=== PATIENT | female | born 1980 | race Caucasian/White ===

== ENCOUNTER 2021-04-20 10:02 | Inpatient (IN) | payer OTHER ==
[2021-04-20] MEDS ORDERED: OXYTOCIN 30 UNITS in 0.9% NS 30 UNIT/500 ML INFUS.BAG IVPB SCH (10:15)
[2021-04-20 11:02] VITALS: BMI 32.3
[2021-04-20] MEDS: ELECTROLYTE-148 SOLN 1,000 ML IV SCH ×2 (11:25→19:30)
[2021-04-20] MEDS ORDERED: OXYTOCIN 30 UNITS in 0.9% NS 30 UNIT/500 ML INFUS.BAG IVPB ONE (11:37)
[2021-04-20 11:50] LABS: BASO % 0.4 % (0-2.0); EOS % 0.4 % (0-4.5); HEMATOCRIT 33.3 % (32.4-45.2); HEMOGLOBIN 11.2 GM/dL (10.7-15.3); LYMPH % 17.1 % (8-40); MCH 26.8 pg (25.7-33.7); MCHC 33.5 g/dl (32.0-36.0); MEAN CELL VOLUME 80.2 fl (80-96); MEAN PLT VOLUME 9.6 fl (7.5-11.1); MONO % 8.1 % (3.8-10.2); PLATELET COUNT 245 10^3/uL (134-434); RBC 4.15 M/mm3 (3.60-5.2); RDW 13.8 % (11.6-15.6); WHITE BLOOD COUNT 8.8 K/mm3 (4.0-10.0)
[2021-04-20 11:56] LABS: INR 0.96 (0.83-1.09); PROTHROMBIN TIME (PATIENT) 11.8 SEC (9.7-13.0)
[2021-04-20 12:04] LABS: ACTIVATED PTT 22.6 SECONDS (25.2-36.5)
[2021-04-20] MEDS ORDERED: FENTANYL/BUPIVACAINE/NS/PF - PCEA - 50 ML DISP.SYRIN EP ONE ×2 (19:17→23:55)
[2021-04-20] MEDS ORDERED: PCA PUMP NR ONE (19:18)
[2021-04-20] MEDS ORDERED: NALOXONE HCL 0.4 MG/ML VIAL IVPUSH PRN (19:20)
[2021-04-20] MEDS ORDERED: BUPIVACAINE HCL/PF 0.25% (2.5MG/ML) 10 ML VIAL ONE (19:23)
[2021-04-20] MEDS: FENTANYL/BUPIVACAINE/NS/PF - PCEA - 50 ML DISP.SYRIN EP SCH (19:55)
[2021-04-20] MEDS ORDERED: LIDOCAINE HCL 1% PRESERVATIVE FREE - 30ML VIAL ONE (22:25)
[2021-04-20] MEDS ORDERED: OXYTOCIN 20 UNITS in 0.9% NS 20 UNIT/1,000 ML INFUS.BAG IV ONE (22:26)
[2021-04-21] MEDS: FENTANYL/BUPIVACAINE/NS/PF - PCEA - 50 ML DISP.SYRIN EP SCH ×2 (00:20→04:00)
[2021-04-21] MEDS: ELECTROLYTE-148 SOLN 1,000 ML IV SCH (04:00)
[2021-04-21] MEDS ORDERED: PCA PUMP NR ONE ×2 (04:02→07:39)
[2021-04-21] MEDS ORDERED: FENTANYL/BUPIVACAINE/NS/PF - PCEA - 50 ML DISP.SYRIN EP ONE ×2 (04:02→07:40)
[2021-04-21] MEDS ORDERED: CITRIC ACID/SODIUM CITRATE 30 ML UNIT-DOSE CUP PO ONE (07:47)
[2021-04-21] MEDS ORDERED: ONDANSETRON 4 MG/2 ML VIAL IVPUSH PRN ×2 (08:11→09:33)
[2021-04-21] MEDS ORDERED: morphine SULFATE/PF 0.5 MG/ML (2cc Syringe - QUVA) EP ONE ×2 (08:11→09:33)
[2021-04-21] MEDS ORDERED: ceFAZolin SODIUM 1 GM VIAL ONE (08:16)
[2021-04-21] MEDS ORDERED: LIDOCAINE HCL/EPINEPHRINE/PF 10 ML VIAL ONE (08:19)
[2021-04-21] MEDS ORDERED: PHENYLEPHRINE HCL 10 MG/1 ML SINGLE DOSE VIAL ONE (08:34)
[2021-04-21] MEDS ORDERED: OXYTOCIN 10 UNITS/ML VIAL ONE (08:40)
[2021-04-21] MEDS ORDERED: ONDANSETRON 4 MG/2 ML VIAL ONE (08:45)
[2021-04-21] MEDS ORDERED: oxyCODONE HCL 5 MG TABLET PO PRN (09:06)
[2021-04-21] MEDS ORDERED: BENZOCAINE 28 GM HEMORRHOIDAL OINTMENT TP PRN (09:06)
[2021-04-21] MEDS ORDERED: METHYLERGONOVINE MALEATE 0.2 MG/1 ML AMP IM PRN (09:06)
[2021-04-21] MEDS ORDERED: WITCH HAZEL 50% (TUCKS) 40 PAD/JAR PAD TP PRN (09:06)
[2021-04-21] MEDS ORDERED: BENZOCAINE 20% 57 GM BOTTLE TP PRN (09:06)
[2021-04-21] MEDS ORDERED: OXYTOCIN 20 UNITS in 0.9% NS 20 UNIT/1,000 ML INFUS.BAG IV SCH (09:15)
[2021-04-21] MEDS ORDERED: IBUPROFEN 800 MG/8 ML IJ IVPB ONE (09:45)
[2021-04-21] MEDS: IBUPROFEN 800 MG/8 ML IJ IVPB PRN ×2 (09:51→23:44)
[2021-04-21] MEDS: PRENATAL VITAMINS W/ FOLIC ACID TABLET (FP) PO SCH (12:53)
[2021-04-21] MEDS: FERROUS SO4 325 MG TABLET (FP) PO SCH ×2 (12:53→18:10)
[2021-04-22 07:46] LABS: BASO % 0.3 % (0-2.0); EOS % 0.5 % (0-4.5); HEMATOCRIT 28.3 % (32.4-45.2); HEMOGLOBIN 9.5 GM/dL (10.7-15.3); LYMPH % 11.8 % (8-40); MCH 26.9 pg (25.7-33.7); MCHC 33.4 g/dl (32.0-36.0); MEAN CELL VOLUME 80.5 fl (80-96); MEAN PLT VOLUME 9.4 fl (7.5-11.1); MONO % 7.7 % (3.8-10.2); NEUT % 79.7 % (42.8-82.8); PLATELET COUNT 192 10^3/uL (134-434); RBC 3.52 M/mm3 (3.60-5.2); WHITE BLOOD COUNT 12.1 K/mm3 (4.0-10.0)
[2021-04-22] MEDS ORDERED: BISACODYL 10 MG SUPP.RECT RC PRN (09:07)
[2021-04-22] MEDS: SIMETHICONE 80 MG TAB.CHEW (FP) PO PRN ×3 (09:50→20:57)
[2021-04-22] MEDS: FERROUS SO4 325 MG TABLET (FP) PO SCH ×2 (09:50→16:33)
[2021-04-22] MEDS: IBUPROFEN 600 MG TABLET (FP) PO PRN ×3 (09:50→20:58)
[2021-04-22] MEDS: ACETAMINOPHEN 325 MG TABLET (FP) PO PRN ×3 (09:50→20:57)
[2021-04-22] MEDS: PRENATAL VITAMINS W/ FOLIC ACID TABLET (FP) PO SCH (09:50)
[2021-04-23] MEDS: IBUPROFEN 600 MG TABLET (FP) PO PRN ×2 (02:31→08:55)
[2021-04-23] MEDS: ACETAMINOPHEN 325 MG TABLET (FP) PO PRN (02:31)
[2021-04-23] MEDS: FERROUS SO4 325 MG TABLET (FP) PO SCH ×2 (08:55→17:54)
[2021-04-23] MEDS: SIMETHICONE 80 MG TAB.CHEW (FP) PO PRN ×2 (08:55→15:41)
[2021-04-23] MEDS: PRENATAL VITAMINS W/ FOLIC ACID TABLET (FP) PO SCH (09:01)
[2021-04-24] MEDS: FERROUS SO4 325 MG TABLET (FP) PO SCH ×2 (07:36→16:46)
[2021-04-24 07:53] LABS: BASO % 0.7 % (0-2.0); EOS % 1.4 % (0-4.5); HEMATOCRIT 27.3 % (32.4-45.2); HEMOGLOBIN 9.3 GM/dL (10.7-15.3); LYMPH % 18.5 % (8-40); MCH 27.7 pg (25.7-33.7); MCHC 34.1 g/dl (32.0-36.0); MEAN CELL VOLUME 81.2 fl (80-96); MEAN PLT VOLUME 9.4 fl (7.5-11.1); MONO % 9.6 % (3.8-10.2); NEUT % 69.8 % (42.8-82.8); PLATELET COUNT 254 10^3/uL (134-434); RBC 3.36 M/mm3 (3.60-5.2); RDW 14.4 % (11.6-15.6); WHITE BLOOD COUNT 9.4 K/mm3 (4.0-10.0)
[2021-04-24] MEDS: PRENATAL VITAMINS W/ FOLIC ACID TABLET (FP) PO SCH (09:03)
[2021-04-24 09:50] VITALS: BP 122/85; PULSE 94; TEMP 99.3
[2021-04-24] MEDS: SIMETHICONE 80 MG TAB.CHEW (FP) PO PRN (16:47)
== END 2021-04-24 19:00 | disposition home or self-care (01) | DRG 540 ==
LOC: JLDR 10:02 → J3W 04-21 12:50
PROVIDERS: ADMIT Obstetrics & Gynecology; ATTEND Obstetrics & Gynecology
PROC: 10D00Z1 Extraction of Products of Conception, Low, Open Approach (ICD-10-PCS; principal; 2021-04-21)
PROC: 0UB70ZZ Excision of Bilateral Fallopian Tubes, Open Approach (ICD-10-PCS; 2021-04-21)
DX: O61.0 Failed medical induction of labor (principal); Z3A.40 40 weeks gestation of pregnancy; Z30.2 Encounter for sterilization; Z37.0 Single live birth
CPT/HCPCS: 36415; 80053; 85025; 85610; 85730; 86780; 86850; 86900; 86901; 88302-TC; 88307-TC; C9803; U0003; U0005

== ENCOUNTER 2021-05-06 01:15 | Inpatient (IN) | payer OTHER ==
[2021-05-06] MEDS ORDERED: MAGNESIUM SULF 50% (8.12 MEQ/2 ML-1 GM VIAL) IVPB ONE (01:51)
[2021-05-06] MEDS ORDERED: LABETALOL HCL 5 MG/1 ML (100MG/20 ML VIAL) IVPUSH ONE ×3 (01:52→08:27)
[2021-05-06] MEDS ORDERED: LABETALOL HCL 200 MG TABLET (FP) PO ONE (01:59)
[2021-05-06] MEDS ORDERED: LIDOCAINE 5% TOPICAL PATCH TP ONE (02:10)
[2021-05-06] MEDS ORDERED: LABETALOL HCL 5 MG/1 ML (100MG/20 ML VIAL) ONE ×2 (02:24→08:21)
[2021-05-06] MEDS ORDERED: MAGNESIUM SULFATE IN WATER 2 GM/50 ML IVPB IVPB ONE (02:32)
[2021-05-06] MEDS ORDERED: LABETALOL HCL 100 MG TABLET (FP) ONE ×2 (02:32→08:56)
[2021-05-06] MEDS ORDERED: LIDOCAINE 5% TOPICAL PATCH ONE (02:32)
[2021-05-06 02:43] LABS: BASO % 0.9 % (0-2.0); HEMATOCRIT 31.1 % (32.4-45.2); HEMOGLOBIN 10.3 GM/dL (10.7-15.3); LYMPH % 29.8 % (8-40); MCH 26.6 pg (25.7-33.7); MCHC 33.2 g/dl (32.0-36.0); MEAN CELL VOLUME 80.1 fl (80-96); MEAN PLT VOLUME 8.5 fl (7.5-11.1); MONO % 10.6 % (3.8-10.2); NEUT % 56.7 % (42.8-82.8); PLATELET COUNT 375 10^3/uL (134-434); RBC 3.88 M/mm3 (3.60-5.2); RDW 14.7 % (11.6-15.6)
[2021-05-06 03:01] LABS: CHLORIDE 109 mmol/L (98-107); SODIUM 140 mmol/L (136-145)
[2021-05-06 03:03] LABS: ALBUMIN 3.2 g/dl (3.4-5.0); ANION GAP 4 MMOL/L (8-16); BLOOD UREA NITROGEN 13.2 mg/dL (7-18); CALCIUM 8.7 mg/dL (8.5-10.1); CO2 27 mmol/L (21-32)
[2021-05-06 03:04] LABS: GLUCOSE,RANDOM 91 mg/dL (74-106)
[2021-05-06 03:06] LABS: SGOT/AST 17 U/L (15-37); SGPT/ALT 22 U/L (13-61)
[2021-05-06 03:07] LABS: CREATININE 0.7 mg/dL (0.55-1.3)
[2021-05-06 03:08] LABS: BILIRUBIN,TOTAL 0.2 mg/dL (0.2-1)
[2021-05-06 03:09] LABS: ALK PHOS 109 U/L (45-117)
[2021-05-06] MEDS ORDERED: ACETAMINOPHEN 500 MG TABLET (FP) PO ONE (03:39)
[2021-05-06] MEDS ORDERED: ACETAMINOPHEN 500 MG TABLET (FP) ONE (04:46)
[2021-05-06 05:03] LABS: EPI CELLS 1 /uL (0-25.1); HYALINE CASTS 0 /uL (0-3.1); URINE APPEARANCE CLEAR; URINE BACTERIA 20 /uL (0-1359); URINE BILIRUBIN NEGATIVE (NEGATIVE); URINE COLOR YELLOW; URINE GLUCOSE (UA) NEGATIVE (NEGATIVE); URINE KETONE NEGATIVE (NEGATIVE); URINE LEUK ESTERASE 1+ (NEGATIVE); URINE NITRITE NEGATIVE (NEGATIVE); URINE PROTEIN NEGATIVE (NEGATIVE); URINE RBC 19 /uL (0-23.9); URINE UROBILINOGEN 0.2 mg/dL (0.2-1.0); URINE WBC 32 /uL (0-25.8)
[2021-05-06 05:06] LABS: MAGNESIUM 2.1 mg/dL (1.8-2.4)
[2021-05-06] MEDS ORDERED: MAGNESIUM SULFATE 20GM/500ML - 20 GM/500 ML INFUS.BAG IV SCH ×2 (08:00→20:54)
[2021-05-06] MEDS ORDERED: LABETALOL HCL 200 MG TABLET (FP) PO SCH (09:15)
[2021-05-06] MEDS ORDERED: hydrALAZINE HCL 10 MG TABLET PO SCH ×2 (10:00)
[2021-05-06] MEDS: ENOXAPARIN NA (PORCINE) 40 MG/0.4 ML DISP.SYRIN SQ SCH (10:58)
[2021-05-06 12:02] VITALS: BMI 28.3
[2021-05-06] MEDS ORDERED: ACETAMINOPHEN 325 MG TABLET (FP) PO PRN (12:40)
[2021-05-06] MEDS: MUPIROCIN 2% TOPICAL OINTMENT FOR DECOLONIZATION NS SCH ×2 (14:21→21:06)
[2021-05-06] MEDS ORDERED: LIDOCAINE PATCH REMOVAL MC ONE (15:00)
[2021-05-06] MEDS ORDERED: NIFEdipine E.R. 30 MG TABLET PO SCH (17:15)
[2021-05-06] MEDS: LABETALOL HCL 200 MG TABLET (FP) PO SCH ×3 (21:07→21:32)
[2021-05-06] MEDS ORDERED: CHLORHEXIDINE GLUCONATE 4% CLEANSER FOR DECOLONIZATION TP SCH (22:00)
[2021-05-07 06:41] LABS: BASO % 0.8 % (0-2.0); EOS % 2.1 % (0-4.5); HEMATOCRIT 32.8 % (32.4-45.2); LYMPH % 27.7 % (8-40); MCH 26.9 pg (25.7-33.7); MCHC 33.6 g/dl (32.0-36.0); MEAN CELL VOLUME 80.2 fl (80-96); MEAN PLT VOLUME 8.7 fl (7.5-11.1); MONO % 8.1 % (3.8-10.2); NEUT % 61.3 % (42.8-82.8); PLATELET COUNT 408 10^3/uL (134-434); RBC 4.09 M/mm3 (3.60-5.2); RDW 14.5 % (11.6-15.6); WHITE BLOOD COUNT 6.6 K/mm3 (4.0-10.0)
[2021-05-07 07:18] LABS: CALCIUM 7.5 mg/dL (8.5-10.1)
[2021-05-07 07:19] LABS: ALBUMIN 3.2 g/dl (3.4-5.0); MAGNESIUM 6.1 mg/dL (1.8-2.4)
[2021-05-07 07:22] LABS: CREATININE 0.8 mg/dL (0.55-1.3); PHOSPHOROUS 4.3 mg/dL (2.5-4.9)
[2021-05-07 07:23] LABS: BILIRUBIN,TOTAL 0.4 mg/dL (0.2-1); TOT PROT 6.8 g/dl (6.4-8.2)
[2021-05-07] MEDS ORDERED: ACETAMINOPHEN 325 MG TABLET (FP) PO PRN ×2 (08:01→19:05)
[2021-05-07] MEDS ORDERED: IBUPROFEN 600 MG TABLET (FP) PO PRN ×2 (08:01→19:05)
[2021-05-07] MEDS ORDERED: SIMETHICONE 80 MG TAB.CHEW (FP) PO PRN ×2 (08:01→19:05)
[2021-05-07] MEDS: ENOXAPARIN NA (PORCINE) 40 MG/0.4 ML DISP.SYRIN SQ SCH (11:00)
[2021-05-07] MEDS: MUPIROCIN 2% TOPICAL OINTMENT FOR DECOLONIZATION NS SCH (11:00)
[2021-05-07] MEDS: LABETALOL HCL 200 MG TABLET (FP) PO SCH (12:01)
[2021-05-07] MEDS ORDERED: LABETALOL HCL 200 MG TABLET (FP) PO ONE (16:12)
[2021-05-08] MEDS ORDERED: BISACODYL 10 MG SUPP.RECT RC PRN ×2 (08:01)
[2021-05-08 08:54] LABS: BASO % 0.9 % (0-2.0); EOS % 2.1 % (0-4.5); HEMATOCRIT 34.8 % (32.4-45.2); HEMOGLOBIN 11.6 GM/dL (10.7-15.3); LYMPH % 26.4 % (8-40); MCH 26.7 pg (25.7-33.7); MCHC 33.2 g/dl (32.0-36.0); MEAN CELL VOLUME 80.5 fl (80-96); MEAN PLT VOLUME 8.8 fl (7.5-11.1); MONO % 7.9 % (3.8-10.2); NEUT % 62.7 % (42.8-82.8); PLATELET COUNT 415 10^3/uL (134-434); RBC 4.32 M/mm3 (3.60-5.2); RDW 14.5 % (11.6-15.6); WHITE BLOOD COUNT 6.3 K/mm3 (4.0-10.0)
[2021-05-08 09:14] LABS: ALBUMIN 3.3 g/dl (3.4-5.0)
[2021-05-08 09:15] LABS: BLOOD UREA NITROGEN 13.5 mg/dL (7-18); MAGNESIUM 2.4 mg/dL (1.8-2.4)
[2021-05-08 09:18] LABS: CREATININE 0.8 mg/dL (0.55-1.3); PHOSPHOROUS 4.1 mg/dL (2.5-4.9)
[2021-05-08 09:19] LABS: BILIRUBIN,TOTAL 0.7 mg/dL (0.2-1); TOT PROT 7.2 g/dl (6.4-8.2)
[2021-05-08 09:26] LABS: CALCIUM 8.7 mg/dL (8.5-10.1)
[2021-05-08] MEDS ORDERED: ENOXAPARIN NA (PORCINE) 40 MG/0.4 ML DISP.SYRIN SQ SCH (10:00)
[2021-05-08] MEDS ORDERED: amLODIPine BESYLATE 5 MG TABLET (FP) PO SCH (10:30)
[2021-05-08 12:17] VITALS: TEMP 98.8
[2021-05-08 12:19] VITALS: BP 151/106; PULSE 67
== END 2021-05-08 17:34 | disposition home or self-care (01) | DRG 561 ==
LOC: JER 01:15 → JERBED 04:46 → JICU 09:51 → J6S 05-07 18:08
PROVIDERS: ADMIT Internal Medicine Pulmonary Disease; ATTEND Internal Medicine
DX: O14.15 Severe pre-eclampsia, complicating the puerperium (principal); I16.0 Hypertensive urgency; I16.9 Hypertensive crisis, unspecified; R51.9 Headache, unspecified
CPT/HCPCS: 36415; 71045-TC-FY; 80053; 81003; 82550; 83036; 83735; 84100; 84439; 84443; 84484; 85025; 86769; 87086; 93005; 93010; 93306-TC; 99285-25; C9803; U0003; U0005